=== PATIENT | female | born 1975 | race Caucasian/White ===

== ENCOUNTER 2021-06-10 09:13 | Emergency (ER) | payer OTHER, SELFPAY ==
[2021-06-10 09:27] VITALS: BP 132/66; PULSE 69; RESP 18; TEMP 36.6; O2SAT 98; BMI 23.8
--- NOTE | 2021-06-10 09:30 | XR_ITS ---
WS: [id number] LEFT ANKLE: 3 VIEW(S) TECHNIQUE: AP, oblique(s) and lateral. HISTORY: injury COMPARISON: None available. Acute nondisplaced oblique fracture involving the distal fibula. by less than 2 mm. The dis mary grace tibia is intact. There is a tiny osseous density which may be part of the fracture but overlies t he lateral ankle joint. There is a small joint effusion. No significant degenerative changes at the joint spaces. Mild soft tissue edema over the lateral ankle. XR/XR ankle LT min 3V* [id number] IMPRESSION: 1. Nondisplaced oblique distal fibular fracture. 2. Mild soft tissue edema over the lateral ankle.
--- NOTE | 2021-06-10 09:32 | W.ED.EXTPRO ---
HPI - Extremity Problem General: Chief complaint: Extremity Injury, Lower Stated complaint: Left ankle injury Time Seen by Provider: 06/10/21 09:16 History of Present Illness: Patient stepped off a 4 coates last night and when she did she rolled her left ankle. She says it hurts to bear weight on that hurts on the outside part of her ankle. Said she is never injured it before. Associated symptoms: Deny chest pain, fever(s) or rash Review of Systems Const: Denies: fever(s), chills or body aches Eyes: Denies: eye discomfort ENMT: Denies: throat pain Card: Denies: chest pain Resp: Denies: dyspnea GI: Denies: abdominal pain, nausea or vomiting Musc: Reports: joint pain (Left ankle), joint swelling and limited range of motion Skin/Breast: Denies: rash Neuro: Denies: headache(s) Psych: Denies: depression or suicidal ideation Physical Exam Const: COMMON NORMALS: no acute distress Resp: COMMON NORMALS: normal respiratory effort Extremity: LEFT LOWER EXTREMITY: Yes ankle joint (Tender to lateral malleus. Medial malleus is okay) Left ankle: Yes ROM (Limited due to pain) and Yes neurovascular exam Course Vital Signs: Vital signs: Vital Signs Temperature 97.9 F 06/10/21 09:27 Pulse Rate 65 06/10/21 09:34 Respiratory Rate 16 06/10/21 09:34 Blood Pressure 147/82 06/10/21 09:34 Pulse Oximetry 97 06/10/21 09:34 MDM - Extremity (Nontraumatic) Medical Decision Making Distant fibular fracture splinted patient placed on crutches appointment made Lab Data Radiology Impressions Ankle X-Ray 06/10/21 09:30 IMPRESSION: 1. Nondisplaced oblique distal fibular fracture. 2. Mild soft tissue edema over the lateral ankle. Discharge Plan Discharge Patient Disposition: Home Clinical Impression: Closed fibular fracture Qualifiers: Encounter type: initial encounter Fibula location: distal Fracture morphology: unspecified fracture morphology Laterality: left Qualified Code(s): S82.832A - Other fracture of upper and lower end of left fibula, initial encounter for closed fracture Condition: Stable Prescriptions: New tramadol 50 mg tablet 50 mg PO TID PRN (Reason: pain) Qty: 7 0RF Discharge Orders: Discharge ED (Routine); Ordered 06/10/21 Ordered By: Bartolome Riley Discharge Diet: Usual diet Discharge Activity: Use walker/crutches as instructed Patient Instructions: Ankle Fracture (ED) Activity Restrictions/Additional Instructions: Follow-up with medical provider as directed. Take medications as prescribed. Return to the ER or your medical provider if condition worsens. Please read and understand discharge instructions. If any questions ask please. We will contact you with an appointment for orthopedic clinic Coding Level of Care Code ED Developer [employer] for [employer] Fwd Exam Expanded Problem Focused
[2021-06-10 09:34] VITALS: BP 147/82; PULSE 65; RESP 16; O2SAT 97
[2021-06-10] MEDS: TRAMadol 50 mg Tablet PO (10:50)
--- NOTE | 2021-06-10 11:29 | DCPLANNER ---
Addendum entered by Edna Stern 06/14/21 06:56: manager commission was notified by the ortho clinic, that patient does not live in the area. Patient will follow up with someone when she gets back home. Original Note: manager commission had message to schedule a follow up appointment for patient with ortho. manager commission sent patients information to the front office staff at ortho. Patients information will be printed and reviewed. Clinic will call patient with appointment information.
== END 2021-06-10 10:55 | disposition home or self-care (01) ==
PROVIDERS: Emergency Provider Nurse Practitioner Family
DX: S82.832A Other fracture of upper and lower end of left fibula, initial encounter for closed fracture (principal); X50.1XXA Overexertion from prolonged static or awkward postures, initial encounter
CPT/HCPCS: 29515; 73610; 99283; E0114